=== PATIENT | female | born 1970 | race Caucasian/White ===

== ENCOUNTER 2016-06-11 10:14 | Inpatient (IN) | payer OTHER ==
[~2016-06-11] VITALS: Ht 157.5 cm; Wt 93.7 kg
[~2016-06-11 10:14] MED LIST: ADVIN10/60 INH; AMLO-110 PO; ASCA500 PO; BUPRTAB51 PO; CINN500T OR; FLX10 PO; LOSA100T26 PO; LPT/40 PO; MELO7.5T5 PO; OMEG10007 PO; PANT40TA PO; POTA-335 PO; SERT50TA PO
[2016-06-11] MEDS ORDERED: SODIUM CHLORIDE 0.9% 1000ML 1,000 ML IV STA (10:46)
[2016-06-11] MEDS ORDERED: METOCLOPRAMIDE HCL INJ 5 MG/ML 2 ML VIAL IV STA (10:46)
[2016-06-11] MEDS ORDERED: HYDROmorphone INJ 1 MG/ML SYR IV STA (10:46)
--- NOTE | 2016-06-11 10:48 | EMERGENCY ROOM VISIT NOTE ---
History Report prepared by Jazziberrol: Evelia Hi Under the Supervision of: Dr. Maynor Brown M.D. First contact with patient: 10:35 Chief Complaint: ABDOMINAL PAIN Stated Complaint: LOWER AB PAIN, MUCUS IN STOOLS Nursing Triage Summary: Pain below belly button. Gallbladder out last year. Pain started yesterday. Diarrhea. History of Present Illness The patient is a 46 year old female who presents to the Emergency Room with complaints of persistent LLQ abdominal pain. Her pain started yesterday and she rates her discomfort as a 7/10. She also complains of diarrhea and abdominal bloating. She underwent a cholecystectomy last year and reports she has had colonoscopies in the past, with no abnormal findings. She denies any fevers or vomiting. Source of History: patient Onset: yesterday Position: abdomen (LLQ) Symptom Intensity: 7/10 Timing: other (persistent) Associated Symptoms: + diarrhea, No fevers, No vomiting Review of Systems See HPI for pertinent positives & negatives. A total of 10 systems reviewed and were otherwise negative. Past Medical & Surgical Medical Problems: (1) Diverticulitis (2) Diverticulitis of large intestine with abscess without bleeding Family History Diabetes mellitus Hypertension Social History Smoking Status: Never Smoker Drug Use: none Housing Status: lives with family Occupation Status: employed Current/Historical Medications Scheduled Amlodipine (Norvasc), 5 MG PO DAILY Ascorbic Acid (Vitamin C), 500 MG PO QAM Atorvastatin (Lipitor), 40 MG PO HS Bupropion (Wellbutrin-Xl), 300 MG PO DAILY Cinnamon (Cinnamon), OR DAILY Cyclobenzaprine Hcl (Flexeril *), 10 MG PO PRN Fish Oil ([place]-3), 1 CAP PO DAILY Fluticasone Prop/Salmeterol (Advair Diskus 100/50 Mcg *), 1 PUFF INH DAILY PRN Losartan Potassium & Hydrochlo (Losartan Potassium/Hydroc), 1 TAB PO DAILY Meloxicam (Mobic), 15 MG PO prn Pantoprazole (Protonix), 40 MG PO DAILY Potassium Chloride (Micro-K Ext Rel), 1 TAB PO TID Sertraline (Zoloft), 1 TAB PO HS Allergies Coded Allergies: No Known Allergies (Verified , NONE, 06/11/16) Physical Exam Vital Signs Date Time Temp Pulse Resp B/P Pulse Ox O2 Delivery O2 Flow Rate FiO2 1/1/17 17:22 Room Air 06/11/16 15:17 93 17 139/88 100 Room Air 06/11/16 12:56 89 17 150/90 98 Room Air 06/11/16 10:18 37.2 104 18 152/93 97 Room Air Physical Exam GENERAL: Patient is a healthy-appearing well-nourished HEAD: Normocephalic atraumatic EYES: Ocular movements intact pupils equal and react to light OROPHARYNX mucous membranes are moist no exudates present no erythema or edema present NECK: Supple no nuchal rigidity CHEST: Good equal expansion LUNGS: Clear and equal to auscultation CARDIAC: Normal S1 and S2 ABDOMEN: Soft, tender in LLQ, no guarding BACK: No CVA tenderness EXTREMITIES: No pain upon palpation normal muscle strength in all groups no clubbing cyanosis or edema NEURO: Patient is following commands is answering questions appropriately. Alert and oriented x3 Cranial Nerves 2-12 grossly intact Medical Decision & Procedures ER Provider Diagnostic Interpretation: This CT scan was reviewed and interpreted by the radiologist and reviewed by myself. CT SCAN OF THE ABDOMEN AND PELVIS WITH IV CONTRAST IMPRESSION: 1. There is mild colonic diverticulosis with evidence of acute sigmoid diverticulitis. A developing 1.8 cm diverticular abscess is suspected. No intraperitoneal free air is seen. 2. Suspect a mild reactive oophoritis of the left ovary. 3. Status post left nephrectomy, cholecystectomy, and hysterectomy. 4. Hepatomegaly and mild hepatic steatosis. 5. Additional changes as above. Electronically signed by: Osbaldo Buckner M.D. 06/11/2016 3:41 PM Laboratory Results 06/11/16 11:00 Red Blood Count 4.33, Mean Corpuscular Volume 84.8, Mean Corpuscular Hemoglobin 29.1, Mean Corpuscular Hemoglobin Concent 34.3, Mean Platelet Volume 12.3, Neutrophils (%) (Auto) 83.5, Lymphocytes (%) (Auto) 9.7, Monocytes (%) (Auto) 6.0, Eosinophils (%) (Auto) 0.4, Basophils (%) (Auto) 0.2, Neutrophils # (Auto) 10.07, Lymphocytes # (Auto) 1.17, Monocytes # (Auto) 0.72, Eosinophils # (Auto) 0.05, Basophils # (Auto) 0.02 06/11/16 11:00 Test 06/11/16 11:00 06/11/16 12:10 White Blood Count 12.06 K/uL (4.8-10.8) Red Blood Count 4.33 M/uL (4.2-5.4) Hemoglobin 12.6 g/dL (12.0-16.0) Hematocrit 36.7 % (37-47) Mean Corpuscular Volume 84.8 fL (80-100) Mean Corpuscular Hemoglobin 29.1 pg (25-34) Mean Corpuscular Hemoglobin Concent 34.3 g/dl (32-36) Platelet Count 146 K/uL (130-400) Mean Platelet Volume 12.3 fL (7.4-10.4) Neutrophils (%) (Auto) 83.5 % Lymphocytes (%) (Auto) 9.7 % Monocytes (%) (Auto) 6.0 % Eosinophils (%) (Auto) 0.4 % Basophils (%) (Auto) 0.2 % Neutrophils # (Auto) 10.07 K/uL (1.4-6.5) Lymphocytes # (Auto) 1.17 K/uL (1.2-3.4) Monocytes # (Auto) 0.72 K/uL (0.11-0.59) Eosinophils # (Auto) 0.05 K/uL (0-0.5) Basophils # (Auto) 0.02 K/uL (0-0.2) RDW Standard Deviation 40.5 fL (36.4-46.3) RDW Coefficient of Variation 13.1 % (11.5-14.5) Immature Granulocyte % (Auto) 0.2 % Immature Granulocyte # (Auto) 0.03 K/uL (0.00-0.02) Anion Gap 8.0 mmol/L (3-11) Est Creatinine Clear Calc Drug Dose 78.5 ml/min Estimated GFR () 83.3 Estimated GFR (Non- 71.8 BUN/Creatinine Ratio 8.0 (10-20) Calcium Level 8.1 mg/dl (8.5-10.1) Total Bilirubin 0.4 mg/dl (0.2-1) Direct Bilirubin 0.1 mg/dl (0-0.2) Aspartate Amino Transf (AST/SGOT) 7 U/L (15-37) Alanine Aminotransferase (ALT/SGPT) 17 U/L (12-78) Alkaline Phosphatase 104 U/L (45-117) Total Protein 6.6 gm/dl (6.4-8.2) Albumin 3.2 gm/dl (3.4-5.0) Lipase 120 U/L (73-393) Urine Color YELLOW Urine Appearance CLEAR (CLEAR) Urine pH 6.5 (4.5-7.5) Urine Specific [place] 1.006 (1.000-1.030) Urine Protein NEG (NEG) Urine Glucose (UA) NEG (NEG) Urine Ketones NEG (NEG) Urine Occult Blood NEG (NEG) Urine Nitrite NEG (NEG) Urine Bilirubin NEG (NEG) Urine Urobilinogen NEG (NEG) Urine Leukocyte Esterase NEG (NEG) Labs reviewed by ED physician. Medications Administered Medications (Trade) Dose Ordered Sig/Saul Route Start Time Stop Time Status Last Admin Dose Admin Sodium Chloride (Nss 1000ml) 1,000 ml @ 999 mls/hr Q1H1M STAT IV 06/11/16 10:46 06/11/16 11:46 DC 06/11/16 10:46 999 MLS/HR Hydromorphone HCl (Dilaudid Inj) 1 mg NOW STAT IV 06/11/16 10:46 06/11/16 10:48 DC 06/11/16 11:14 1 MG Metoclopramide HCl (Reglan Inj) 10 mg NOW STAT IV 06/11/16 10:46 06/11/16 10:48 DC 06/11/16 11:14 10 MG Ciprofloxacin/ Dextrose (Cipro / D5w) 400 mg NOW STAT IV 06/11/16 15:50 06/11/16 15:51 DC 06/11/16 15:56 400 MG Metronidazole (Flagyl / Nss) 500 mg NOW STAT IV 06/11/16 15:50 06/11/16 15:51 DC 06/11/16 15:50 500 MG ED Course 1042: Past medical records reviewed. The patient was evaluated in room A9. A complete history and physical examination was performed. 1046: Reglan 10 mg IV, Dilaudid 1 mg IV, NSS 1000 ml @ 999 mls/hr IV. 1548: I discussed the patients case with Dr. Mcintosh, [facility] Surgery. He recommends I consult with the hospital medicine team. 1550: Flagyl 500 mg IV, Cipro 400 mg IV. 1603: I discussed the patients case with Dr. Bernardo [facility] Hospitalist. The patient will be further evaluated. Medical Decision Prior records/ancillary studies reviewed. Triage Nursing notes reviewed. The patient's history was concerning for abdominal pain. Differential diagnosis: Etiologies such as appendicitis, diverticulitis, PUD, biliary pathology, UTI, pancreatitis, obstruction, mesenteric ischemia, aortic pathology, infections, inflammatory bowel disease, renal colic, as well as others were entertained. This is a 46-year-old female who presents emergency department complaining of left lower quadrant abdominal pain along with mucousy stools. Based on the patient's examination as well as the elevation in her white blood count she was sent for a CAT scan of the abdomen pelvis. This was concerning for diverticulitis with an abscess. For this reason I did discuss the case with the surgeon on-call who felt that the patient could be admitted to the medicine service. The patient was started on Cipro and Flagyl IV. I did discuss case with the medicine service who agreed to admit the patient. An IV was established, the patient given normal saline bolus, Dilaudid, Zofran. Repeat examination revealed improvement patient's symptoms. Surgical abdominal examinations were performed on the patient in the emergency department and at no time did the patient exhibit a surgical abdomen. Consults Time Called: 1547 Consulting Physician: Dr. Mcintosh, [facility] General Surgery Returned Call: 1548 I discussed the patients case with Dr. Mcintosh, [facility] Surgery. He recommends I consult with the hospital medicine team. Additional Consults: Time Called: 1600 Consulted Physician: Dr. Bernardo [facility] Hospitalist Returned Call: 1603 Additional Comments: I discussed the patients case with Dr. Bernardo [facility] Hospitalist. The patient will be further evaluated. Impression Primary Impression: Diverticulitis Scribe Attestation The scribe's documentation has been prepared under my direction and personally reviewed by me in its entirety. I confirm that the note above accurately reflects all work, treatment, procedures, and medical decision making performed by me. Departure Information Dispostion Being Evaluated By Hospitalist Referrals Osbaldo Jones M.D. (PCP) Patient Instructions A Signature Page, My [facility]
[2016-06-11 11:36] LABS: BASO % 0.2 %; BASO ABS # 0.02 K/uL (0-0.2); COMPLETE YES; EOS % 0.4 %; HEMATOCRIT 36.7 % (37-47); IG% 0.2 %; LYMPH % 9.7 %; LYMPH ABS # 1.17 K/uL (1.2-3.4); MEAN CELL VOLUME 84.8 fL (80-100); MEAN CORPUSCULAR HEMOGLOBIN 29.1 pg (25-34); MEAN CORPUSCULAR HGB CONC 34.3 g/dl (32-36); MEAN PLATELET VOLUME 12.3 fL (7.4-10.4); NEUT % 83.5 %; PLATELET COUNT 146 K/uL (130-400); RED BLOOD COUNT 4.33 M/uL (4.2-5.4); WHITE BLOOD COUNT 12.06 K/uL (4.8-10.8)
[2016-06-11 11:46] LABS: CREATININE 0.95 mg/dl (0.60-1.20)
[2016-06-11 11:47] LABS: CALCIUM 8.1 mg/dl (8.5-10.1); POTASSIUM 3.5 mmol/L (3.5-5.1)
[2016-06-11 12:32] LABS: URINE APPEARANCE CLEAR (CLEAR); URINE BILIRUBIN NEG (NEG); URINE COLOR YELLOW; URINE NITRITE NEG (NEG); URINE PH 6.5 (4.5-7.5); URINE SPECIFIC GRAVITY 1.006 (1.000-1.030); UROBILINOGEN NEG (NEG)
[2016-06-11 12:34] LABS: MANUAL MICROSCOPIC REQUIRED? NO; REVIEW REQ? NO
--- NOTE | 2016-06-11 15:43 | DIAGNOSTIC IMAGING REPORT ---
CT SCAN OF THE ABDOMEN AND PELVIS WITH IV CONTRAST CLINICAL HISTORY: Left lower quadrant abdominal pain. COMPARISON STUDY: Abdominal ultrasound dated 12/26/2014. TECHNIQUE: Following the IV administration of 118 cc of Optiray 320, CT scan of the abdomen and pelvis is performed from the lung bases to the proximal femora. Images are reviewed in the axial, sagittal, and coronal planes. IV contrast was administered without complication. Automated dose control exposure was utilized. CT DOSE: 886.62 mGy.cm FINDINGS: Lung bases: The heart is normal in size and without pericardial effusion. The lung bases are clear. Liver: The contrast-enhanced the liver is enlarged, measuring 20 cm in length. The liver demonstrates slightly diminished attenuation suggesting hepatic steatosis. The liver is normal in contour. There is no intrahepatic biliary ductal dilatation. The hepatic veins and portal veins are patent. Gallbladder: Surgically absent noting clips in the gallbladder fossa. Spleen: Normal in size and attenuation. Pancreas: Unremarkable. Adrenal glands: Unremarkable. Kidneys: The left kidney is not identified and presumed surgically absent. The right kidney is normal in size and without hydronephrosis. The right kidney enhances homogeneously. A subcentimeter cortical hypodensity in the right kidney likely represents a cyst but is too small for definitive characterization. Abdominal vasculature: The abdominal aorta is normal in course and caliber. Bowel: There is no bowel obstruction. There is mild sigmoid diverticulosis. There is significant wall thickening with pericolonic inflammation and fluid identified involving the proximal sigmoid colon consistent with acute diverticulitis. There is a small development diverticular abscess suggested on axial image #315 measuring up to 1.8 cm. The appendix is well-visualized and normal. Peritoneum: There is no intraperitoneal free air or abdominal ascites. There is a fat-containing umbilical hernia. Lymphadenopathy: None. Pelvic viscera: The bladder is decompressed and not well evaluated. The uterus is surgically absent. No adnexal lesion is seen. Left ovary appears mildly enlarged and heterogeneous. This likely represents a reactive oophoritis secondary to adjacent diverticular disease. Skeletal structures: No lytic or blastic lesions are seen. Advanced degenerative sclerosis is noted involving the sacroiliac joints. IMPRESSION: 1. There is mild colonic diverticulosis with evidence of acute sigmoid diverticulitis. A developing 1.8 cm diverticular abscess is suspected. No intraperitoneal free air is seen. 2. Suspect a mild reactive oophoritis of the left ovary. 3. Status post left nephrectomy, cholecystectomy, and hysterectomy. 4. Hepatomegaly and mild hepatic steatosis. 5. Additional changes as above. Electronically signed by: Osbaldo Buckner M.D. 06/11/2016 3:41 PM
[2016-06-11] MEDS ORDERED: METRONIDAZOLE 500MG / 100ML NSS IV STA (15:50)
[2016-06-11] MEDS ORDERED: CIPROFLOXACIN 400MG / 200ML D5W IV STA (15:50)
[2016-06-11] MEDS ORDERED: ACETAMINOPHEN 325 MG TAB PO PRN (17:00)
[2016-06-11] MEDS ORDERED: ONDANSETRON INJ 2 MG/ML 2 ML VIAL IV PRN (17:00)
[2016-06-11] MEDS ORDERED: HYDROmorphone INJ 1 MG/ML SYR IV PRN ×2 (17:00)
[2016-06-11 17:22] VITALS: Ht 157.5 cm; Wt 93.7 kg
[2016-06-11 17:42] VITALS: O2SAT 98
[2016-06-11 17:57] VITALS: BP 151/88; PULSE 78; TEMP 36.8; O2SAT 98
[2016-06-11 18:19] LABS: INR 0.9 (0.9-1.1)
[2016-06-11] MEDS: D5W AND 1/2NSS + 20MEQ KCL 1,000 ML IV SCH (20:47)
[2016-06-11] MEDS ORDERED: ATORVASTATIN 40 MG TAB PO SCH (21:00)
[2016-06-11] MEDS ORDERED: SERTRALINE HCL 50 MG TAB PO SCH (21:00)
[2016-06-11] MEDS ORDERED: ENOXAPARIN 40 MG/0.4 ML SYR SQ SCH (21:00)
--- NOTE | 2016-06-11 21:56 | History and Physical ---
History & Physical H&P dictated. #[id number].
[2016-06-11 22:57] VITALS: BP 117/76; PULSE 81; TEMP 36.7; O2SAT 94
--- NOTE | 2016-06-11 23:08 | HISTORY & PHYSICAL EXAMINATION ---
DATE OF ADMISSION: 06/11/2016 CHIEF COMPLAINT: Lower abdominal pain. HISTORY OF PRESENT ILLNESS: A 46-year-old female patient, who presented to the Emergency Department with left lower quadrant abdominal pain that started 24 hours prior. She rates the discomfort as 7/10 and it is a persistent, nagging type of pain. She did feel that she has had abdominal bloating and some diarrhea. She has not had any fevers or chills. No vomiting, but she has been somewhat nauseated. PAST MEDICAL HISTORY: Consistent with hypertension, hyperlipidemia, GERD, depression and asthma. PAST SURGICAL HISTORY: Partial hysterectomy, , tubal ligation, ankle and neck surgery. She was a donor for kidney transplant to her son. FAMILY HISTORY: Positive for hypertension and diabetes. SOCIAL HISTORY: The patient is . She is employed. Does not smoke or take illicit substances. ALLERGIES: She has no known drug allergies. CURRENT HOME MEDICATIONS: Include; Norvasc 5 mg daily, vitamin C 500 mg in the morning, Lipitor 40 mg at bedtime, Wellbutrin-XL 300 mg daily, cinnamon daily, Flexeril 10 mg p.r.n., omega 3 one capsule daily, Advair Diskus 100/50 one puff b.i.d. and p.r.n. she says, losartan/hydrochlorothiazide 1 tablet daily; no dose was given, Mobic 15 mg p.r.n., Protonix 40 mg daily, Zoloft 1 tablet at bedtime, potassium 1 tablet t.i.d.; no dose was given. REVIEW OF SYSTEMS: A complete 10-system review was performed and was negative other than what I placed in the HPI. PHYSICAL EXAMINATION: VITAL SIGNS: Temperature 36.8, pulse of 89, respiratory rate of 17, blood pressure 150/90 and pulse ox 98% on room air. GENERAL: The patient is awake, alert and oriented x3, not in acute distress. HEENT: TMs intact. No inflammation. Extraocular muscles are intact. Pupils are equal, round, reactive to light and accommodation. Mucous membranes are moist. Throat is clear. NECK: No JVD or lymphadenopathy. LUNGS: Clear to auscultation bilaterally. No rales, rhonchi or wheezes. HEART: Regular, normal S1, S2, without murmurs, rubs or gallops. ABDOMEN: Soft. Left lower quadrant tenderness, no guarding, no rebound. Positive bowel sounds. EXTREMITIES: No clubbing, cyanosis or edema. NEUROLOGIC: Cranial nerves II-XII are grossly intact and nonfocal. SKIN: Warm and dry without rash. PSYCHIATRIC: The patient is pleasant and cooperative. No signs of significant anxiety or depression. IMAGING: CT scan of the abdomen and pelvis, the impression is: 1. There is mild colonic diverticulosis with evidence of acute sigmoid diverticulitis, a developing 1.8 cm diverticular abscess is suspected. No intraperitoneal free air is seen. 2. Suspect mild reactive oophoritis of the left ovary. 3. Status post left nephrectomy, cholecystectomy and hysterectomy. 4. Hepatomegaly and mild hepatic steatosis. 5. Additional changes as noted above. LABORATORY DATA: White count 12.06, hemoglobin 12.6, hematocrit 36.7 and platelet count of 146,000. Sodium 141, potassium 3.5, chloride 107, CO2 26, BUN 8 and creatinine 0.95. AST of 7, ALT of 17 and lipase of 120. INR of 0.9. Urinalysis was essentially negative. ASSESSMENT: The patient is assessed as acute diverticulitis with small sigmoid diverticular abscess at 1.8 cm. PLAN: She was admitted for IV Cipro and IV Flagyl, given IV fluids, full liquid diet and appropriate home medications are continued. Pain and nausea control. DVT prophylaxis in the form of Lovenox, IVY hose and SCDs. NOTE: The patient informed me that her son has to go to [place] for a kidney transplant and the family had planned to leave Sunday evening which would be at the time of this dictation, tomorrow night. I told the patient that it would be expected that she would continue on IV antibiotics perhaps another day or two. However, it would be beneficial for her to be able to be with her son doing this significant procedure that she asked if she could be switched; to oral antibiotics by the afternoon tomorrow and allowing her to go with her son. I told her that we will do what we can in that situation.
[2016-06-12] MEDS: METRONIDAZOLE / NSS 500 MG in PREMIXED NSS 100 ML IV SCH ×2 (00:21→07:24)
[2016-06-12] MEDS: D5W AND 1/2NSS + 20MEQ KCL 1,000 ML IV SCH ×2 (03:43→11:49)
[2016-06-12] MEDS ORDERED: CIPROFLOXACIN / D5W 400 MG in PREMIXED IN D5W 200 ML IV SCH (04:00)
[2016-06-12 07:02] VITALS: BP 125/78; PULSE 87; TEMP 36.4; O2SAT 96
[2016-06-12 08:37] LABS: BASO % 0.3 %; BASO ABS # 0.02 K/uL (0-0.2); COMPLETE YES; EOS % 1.5 %; HEMATOCRIT 36.6 % (37-47); IG% 0.3 %; LYMPH ABS # 1.54 K/uL (1.2-3.4); MEAN CELL VOLUME 85.3 fL (80-100); MEAN CORPUSCULAR HEMOGLOBIN 28.4 pg (25-34); MEAN CORPUSCULAR HGB CONC 33.3 g/dl (32-36); MEAN PLATELET VOLUME 12.3 fL (7.4-10.4); MONO % 5.5 %; NEUT % 71.4 %; PLATELET COUNT 158 K/uL (130-400); RED BLOOD COUNT 4.29 M/uL (4.2-5.4); WHITE BLOOD COUNT 7.33 K/uL (4.8-10.8)
[2016-06-12 08:45] VITALS: BP 130/83; PULSE 87
[2016-06-12] MEDS ORDERED: CPR500 PO (08:46)
[2016-06-12] MEDS ORDERED: METR500T PO (08:46)
--- NOTE | 2016-06-12 08:51 | Discharge Instructions ---
Discharge Instructions Admission Reason for Admission: Diverticulitis Of Large Intestine W/ Abscess Discharge Discharge Diagnosis / Problem: Diverticulitis of Large intestine with abscess Discharge Goals Goal(s): Decrease discomfort, Improve disease control Activity Recommendations Activity Limitations: resume your previous activity . Instructions / Follow-Up Instructions / Follow-Up Complete antibiotic course. Call PCP or return to the ED for fever, worsening abdominal pain, or persistent diarrhea. Current Hospital Diet Full liquid diet. Discharge Diet Recommended Diet: Regular Diet Pending Studies Studies pending at discharge: no Laboratory Results Last 24 Hours Test 06/11/16 11:00 06/11/16 12:10 06/12/16 08:25 White Blood Count 12.06 K/uL 7.33 K/uL Red Blood Count 4.33 M/uL 4.29 M/uL Hemoglobin 12.6 g/dL 12.2 g/dL Hematocrit 36.7 % 36.6 % Mean Corpuscular Volume 84.8 fL 85.3 fL Mean Corpuscular Hemoglobin 29.1 pg 28.4 pg Mean Corpuscular Hemoglobin Concent 34.3 g/dl 33.3 g/dl Platelet Count 146 K/uL 158 K/uL Mean Platelet Volume 12.3 fL 12.3 fL Neutrophils (%) (Auto) 83.5 % 71.4 % Lymphocytes (%) (Auto) 9.7 % 21.0 % Monocytes (%) (Auto) 6.0 % 5.5 % Eosinophils (%) (Auto) 0.4 % 1.5 % Basophils (%) (Auto) 0.2 % 0.3 % Neutrophils # (Auto) 10.07 K/uL 5.24 K/uL Lymphocytes # (Auto) 1.17 K/uL 1.54 K/uL Monocytes # (Auto) 0.72 K/uL 0.40 K/uL Eosinophils # (Auto) 0.05 K/uL 0.11 K/uL Basophils # (Auto) 0.02 K/uL 0.02 K/uL RDW Standard Deviation 40.5 fL 41.0 fL RDW Coefficient of Variation 13.1 % 13.2 % Immature Granulocyte % (Auto) 0.2 % 0.3 % Immature Granulocyte # (Auto) 0.03 K/uL 0.02 K/uL Prothrombin Time 10.0 SECONDS Prothromb Time International Ratio 0.9 Sodium Level 141 mmol/L Potassium Level 3.5 mmol/L Chloride Level 107 mmol/L Carbon Dioxide Level 26 mmol/L Anion Gap 8.0 mmol/L Blood Urea Nitrogen 8 mg/dl Creatinine 0.95 mg/dl Est Creatinine Clear Calc Drug Dose 78.5 ml/min Estimated GFR () 83.3 Estimated GFR (Non- 71.8 BUN/Creatinine Ratio 8.0 Random Glucose 95 mg/dl Calcium Level 8.1 mg/dl Total Bilirubin 0.4 mg/dl Direct Bilirubin 0.1 mg/dl Aspartate Amino Transf (AST/SGOT) 7 U/L Alanine Aminotransferase (ALT/SGPT) 17 U/L Alkaline Phosphatase 104 U/L Total Protein 6.6 gm/dl Albumin 3.2 gm/dl Lipase 120 U/L Urine Color YELLOW Urine Appearance CLEAR Urine pH 6.5 Urine Specific [place] 1.006 Urine Protein NEG Urine Glucose (UA) NEG Urine Ketones NEG Urine Occult Blood NEG Urine Nitrite NEG Urine Bilirubin NEG Urine Urobilinogen NEG Urine Leukocyte Esterase NEG Medical Emergencies . Who to Call and When: Medical Emergencies: If at any time you feel your situation is an emergency, please call 911 immediately. . Non-Emergent Contact Non-Emergency issues call your: Primary Care Provider Call Non-Emergent contact if: you have a fever, your pain is worsening . . "Provider Documentation" section prepared by Merrill Bernardo. VTE Core Measure Inpt VTE Proph given/why not?: Enoxaparin (Lovenox)SQ, T.E.D. Stockings, SCD's
[2016-06-12] MEDS ORDERED: BuPROPion XL 300 MG TABCR PO SCH (09:00)
[2016-06-12] MEDS ORDERED: PANTOprazole SOD 40 MG TAB PO SCH (09:00)
[2016-06-12] MEDS ORDERED: AMLODIPINE BESYLATE 5 MG TAB PO SCH (09:00)
--- NOTE | 2016-06-12 09:03 | Discharge Summary ---
Discharge Summary Admission Date: Jun 11, 2016 at 16:23 Discharge Date: Jun 12, 2016 Discharge Disposition: Home Principal Diagnosis: Diverticulitis of large intestine with abscess. Problems/Secondary Diagnoses: Diverticulosis Immunizations: Have You Had Influenza Vaccine: Yes History of Tetanus Vaccine?: Yes History of Pneumococcal: No History of Hepatitis B Vaccine: Yes Procedures: none Consultations: none Medication Reconciliation New Medications: Ciprofloxacin (Ciprofloxacin HCl) 500 Mg Tab 500 MG PO BID for 10 Days, #20 0 Refills NS Metronidazole (Flagyl) 500 Mg Tab 500 MG PO TID for 10 Days, #30 TAB NS Continued Medications: Amlodipine (Norvasc) 5 Mg Tab 5 MG PO DAILY, TAB Ascorbic Acid (Vitamin C) 500 Mg Tab 500 MG PO QAM Atorvastatin (Lipitor) 40 Mg Tab 40 MG PO HS, TAB Bupropion (Wellbutrin-Xl) 300 Mg Tabcr 300 MG PO DAILY, TAB Cinnamon (Cinnamon) 500 Mg Tab OR DAILY Cyclobenzaprine Hcl (Flexeril *) 10 Mg Tab 10 MG PO PRN, #21 Fish Oil ([place]-3) 1 Ea Cap 1 CAP PO DAILY Fluticasone Prop/Salmeterol (Advair Diskus 100/50 Mcg *) Aerp 1 PUFF INH DAILY PRN Losartan Potassium & Hydrochlo (Losartan Potassium/Hydroc) 1 Tab Tab 1 TAB PO DAILY for 90 Days, #90 TAB 1 Refill Meloxicam (Mobic) 7.5 Mg Tab 15 MG PO prn, TAB Pantoprazole (Protonix) 40 Mg Tab 40 MG PO DAILY, #30 TAB Potassium Chloride (Micro-K Ext Rel) 20 Meq Cap 1 TAB PO TID for 90 Days, #90 TAB 1 Refill Sertraline (Zoloft) 50 Mg Tab 1 TAB PO HS for 30 Days, #30 TAB 2 Refills Discharge Exam A 10 system review was performed and all were negative. She had no abdominal pain on the morning of discharge. GEN: Awake, alert, and oriented x 3. Not in acute distress HEENT: Tm's intact, no inflammation, EOMI, PERRLA, MMM Neck: Soft, supple Lungs: CTA b/l, no r/r/w Heart: REG, nrl S1S2 without murmurs, rubs or gallops Abdomen: Soft, NT, ND, + BS EXT: No C/C/E NEURO: CN's II-XII grossly intact, non-focal Skin: warm, dry, no rashes PSYCH: pleasant, cooperative, no signs of significant anxiety or depression. Hospital Course The patient presented with LLQ abdominal pain and was found to have Diverticulitis with small (1.8cm) abscess formation. She was started on IV Cipro and IV Flagyl. The ED physician had spoke with surgery and felt that the size of the abscess warranted medical therapy i.e. no need for surgical intervention. The patient informed me on admission that on 06/13 her son was having a kidney transplant in [place], [place] which she strongly desired to be with him. They had made arrangements to be at hotel near the site on this day at around 1600. Noting that she had no abdominal pain or nausea and that her white count had returned to normal, I obliged the patient with discharge on oral antibiotics. I spoke with her specifically advising that if she develops fever or has return of abdominal pain to call her PCP or return to the ED. Otherwise she is to follow up with her PCP when she and her family return from [place]. She was appreciative of the timely discharge to attend to family needs. Total Time Spent: Greater than 30 minutes This includes examination of the patient, discharge planning, medication reconciliation, and communication with other providers. Discharge Instructions Please refer to the electronic Patient Visit Report (Discharge Instructions) for additional information. Follow-Up PCP - call office when return from [place], [place].
[2016-06-12 09:04] LABS: BUN/CREATININE RATIO 4.8 (10-20); CALCIUM 8.2 mg/dl (8.5-10.1); CREATININE 0.93 mg/dl (0.60-1.20); POTASSIUM 3.5 mmol/L (3.5-5.1)
[2016-06-12 09:42] VITALS: BP 130/83; PULSE 87; TEMP 36.4; O2SAT 96
== END 2016-06-12 12:37 | disposition home or self-care (01) | DRG 392 ==
LOC: ENRESERV → ENRESERVDT → ENRESERVTM → C.EDB 10:15 → C.MSN 16:23
PROVIDERS: ADMIT Hospitalist; ATTEND Hospitalist
DX: K57.20 Diverticulitis of large intestine with perforation and abscess without bleeding (principal); I10 Essential (primary) hypertension; E78.5 Hyperlipidemia, unspecified; K21.9 Gastro-esophageal reflux disease without esophagitis; J45.909 Unspecified asthma, uncomplicated; F32.9 Major depressive disorder, single episode, unspecified; Z79.1 Long term (current) use of non-steroidal anti-inflammatories (NSAID); Z79.51 Long term (current) use of inhaled steroids; Z79.899 Other long term (current) drug therapy

== ENCOUNTER → 2016-09-11 | Outpatient (CLI) | payer OTHER ==
[~2016-09-11] MED LIST changes: +CPR500 PO; -LOSA100T26 PO; +LOSA100T33 PO
[2016-09-11 13:43] LABS: BLOOD UREA NITROGEN 8 mg/dl (7-18); BUN/CREATININE RATIO 8.5 (10-20); CREATININE 0.93 mg/dl (0.60-1.20)
== END | disposition home or self-care (01) ==
LOC: C.LABMFLN 07:56
PROVIDERS: ATTEND Family Medicine
DX: R10.9 Unspecified abdominal pain (principal)

== ENCOUNTER → 2016-09-12 | Outpatient (CLI) | payer OTHER ==
[~2016-09-12] MED LIST changes: +OPTIRAY 320 IV PRN
--- NOTE | 2016-09-12 16:05 | DIAGNOSTIC IMAGING REPORT ---
ABDOMEN AND PELVIS CT WITH IV AND ORAL CONTRAST CT DOSE: 799.79 mGy.cm HISTORY: Diverticulosis. Pain TECHNIQUE: Multiaxial CT images of the abdomen and pelvis were performed following the use of intravenous and oral contrast. COMPARISON STUDY: 06/11/2016 FINDINGS: Lung bases are clear. Liver spleen and pancreas are unremarkable. Patient is status post prior cholecystectomy, [fracture mid, as well as hysterectomy. The bowel pattern overall is nonobstructive. Appendix is normal. There are several scattered diverticuli. The diverticulitis of the proximal sigmoid colon. Described is no longer present. There is 2 cm left ovarian cyst with several peripheral calcifications. Bladder is midline. There is no free fluid within pelvic cul-de-sac. IMPRESSION: 1. Improved study from the prior exam. 2. No evidence for acute diverticulitis. 3. Slightly complex 2 cm left ovarian cyst. 4. Prior left affectively, cholecystectomy, and partial hysterectomy. Electronically signed by: Boris Lainez M.D. 09/12/2016 4:03 PM Dictated Date/Time: 09/12/2016 4:00 PM
== END | disposition home or self-care (01) ==
LOC: C.CTS 15:37
PROVIDERS: ATTEND Family Medicine
DX: R10.32 Left lower quadrant pain (principal); K57.32 Diverticulitis of large intestine without perforation or abscess without bleeding; N83.202 Unspecified ovarian cyst, left side; Z90.710 Acquired absence of both cervix and uterus; Z90.49 Acquired absence of other specified parts of digestive tract

== ENCOUNTER → 2016-09-28 | Outpatient (CLI) | payer OTHER ==
[~2016-09-28] MED LIST changes: -OPTIRAY 320 IV PRN
== END | disposition home or self-care (01) ==
LOC: C.LABMFLN 08:15
PROVIDERS: ATTEND Family Medicine
DX: J02.9 Acute pharyngitis, unspecified (principal)

== ENCOUNTER → 2017-01-29 | Outpatient (CLI) | payer OTHER ==
[~2017-01-29] MED LIST changes: +LOSA100T26 PO; -LOSA100T33 PO
--- NOTE | 2017-01-29 15:18 | DIAGNOSTIC IMAGING REPORT ---
ABD/PELVIS IV AND ORAL CONT CLINICAL HISTORY: 46 years-old Female presenting with DIVERTICULITIS. TECHNIQUE: Multidetector CT of the abdomen and pelvis was performed after the administration of oral and intravenous contrast. IV contrast: 93 mL of Optiray 320. A dose lowering technique was used consistent with the principles of ALARA (as low as reasonably achievable). COMPARISON: 09/12/2016. CT DOSE (mGy.cm): The estimated cumulative dose is 1025.62 mGycm. FINDINGS: Magician/Illusionist topogram: Cholecystectomy clips noted. Additional surgical clips in the left periaortic region. Lung bases: Minimal dependent opacities at the right lung base, possibly atelectasis. Normal heart size. No pericardial or pleural effusion. Liver: Normal morphology. No liver lesion. Patent hepatic vasculature. Biliary: No intrahepatic or extrahepatic biliary ductal dilatation. Gallbladder surgically absent. Pancreas: Normal. Spleen: Normal. Adrenal glands: Normal. Kidneys and ureters: Postsurgical changes of left nephrectomy. No abnormal soft tissue in the operative bed. No nephrolithiasis in the right kidney. Subcentimeter hypodensity in the interpolar region, too small to characterize but likely cyst. Nodular process. Right ureter normal. Bladder: Normal. Pelvic organs: Uterus surgically absent. Ovaries normal with dominant follicle on the left. Bowel: No significant diverticulosis. No diverticulitis. Moderate stool burden in the rectum. Normal appendix. No bowel obstruction. Peritoneal cavity: No free fluid or intraperitoneal gas. Vasculature: Aorta and IVC patent and normal in caliber. Lymph nodes: No enlarged lymph nodes in the abdomen or pelvis. Abdominal wall: Small fat-containing of umbilical hernia. Diastases of the abdominis rectus. Musculoskeletal: Normal. IMPRESSION: 1. No evidence of diverticulosis or diverticulitis. No acute intra-abdominal pathology. 2. Postsurgical changes of left nephrectomy. No suspicious soft tissue in the operative bed. Electronically signed by: Ousmane Interiano M.D. 01/29/2017 3:16 PM Dictated Date/Time: 01/29/2017 3:10 PM
== END | disposition home or self-care (01) ==
LOC: C.CTS 12:45
PROVIDERS: ATTEND Family Medicine
DX: K57.32 Diverticulitis of large intestine without perforation or abscess without bleeding (principal)

== ENCOUNTER → 2017-01-30 | Outpatient (CLI) | payer OTHER ==
[2017-01-30 13:43] LABS: URINE APPEARANCE CLEAR (CLEAR); URINE BILIRUBIN NEG (NEG); URINE COLOR YELLOW; URINE NITRITE NEG (NEG); URINE PH 5.5 (4.5-7.5); URINE SPECIFIC GRAVITY 1.016 (1.000-1.030); UROBILINOGEN NEG (NEG)
[2017-01-30 13:49] LABS: MANUAL MICROSCOPIC REQUIRED? NO; REVIEW REQ? NO
[2017-02-02 18:22] LABS: CRYPTOSPORIDIUM AG TC 37213 NOT DETECTED (NOT DETECTED); O&P GIARDIA AG NOT DETECTED (NOT DETECTED)
== END | disposition home or self-care (01) ==
LOC: C.LABMFLN 10:20
PROVIDERS: ATTEND Family Medicine
DX: R10.32 Left lower quadrant pain (principal); R19.7 Diarrhea, unspecified

== ENCOUNTER → 2017-02-01 | Outpatient (CLI) | payer OTHER ==
[2017-02-01 13:35] LABS: BASO % 0.6 %; BASO ABS # 0.04 K/uL (0-0.2); COMPLETE YES; EOS % 2.3 %; HEMATOCRIT 37.4 % (37-47); IG% 0.3 %; LYMPH % 19.1 %; LYMPH ABS # 1.26 K/uL (1.2-3.4); MEAN CELL VOLUME 84.4 fL (80-100); MEAN CORPUSCULAR HEMOGLOBIN 28.9 pg (25-34); MEAN CORPUSCULAR HGB CONC 34.2 g/dl (32-36); MEAN PLATELET VOLUME 12.7 fL (7.4-10.4); MONO % 6.2 %; NEUT % 71.5 %; PLATELET COUNT 166 K/uL (130-400); RED BLOOD COUNT 4.43 M/uL (4.2-5.4); WHITE BLOOD COUNT 6.59 K/uL (4.8-10.8)
[2017-02-01 14:24] LABS: ALKALINE PHOSPHATASE 99 U/L (45-117); ALT/SGPT 22 U/L (12-78); AMYLASE 59 U/L (25-115); AST/SGOT 19 U/L (15-37)
[2017-02-01 16:19] LABS: CHOLESTEROL/HDL RATIO 3.5
== END | disposition home or self-care (01) ==
LOC: C.LABMFLN 07:58
PROVIDERS: ATTEND Family Medicine
DX: R10.32 Left lower quadrant pain (principal)

== ENCOUNTER → 2017-02-05 | Outpatient (CLI) | payer OTHER ==
[2017-02-05 13:37] LABS: BLOOD UREA NITROGEN 9 mg/dl (7-18); BUN/CREATININE RATIO 9.6 (10-20); CALCIUM 8.5 mg/dl (8.5-10.1); CARBON DIOXIDE 25 mmol/L (21-32); CHLORIDE 107 mmol/L (98-107); CREATININE 0.96 mg/dl (0.60-1.20); GLUCOSE 100 mg/dl (70-99); SODIUM 139 mmol/L (136-145)
== END | disposition home or self-care (01) ==
LOC: C.LABMFLN 11:50
PROVIDERS: ATTEND Family Medicine
DX: E55.9 Vitamin D deficiency, unspecified (principal); E78.5 Hyperlipidemia, unspecified; I10 Essential (primary) hypertension

== ENCOUNTER → 2017-03-12 | Outpatient (CLI) | payer OTHER ==
--- NOTE | 2017-03-12 15:44 | MAMMOGRAPHY REPORT ---
BILATERAL DIGITAL SCREENING MAMMOGRAM TOMOSYNTHESIS WITH CAD: 03/12/2017 CLINICAL HISTORY: Routine screening. Patient has no complaints. TECHNIQUE: Breast tomosynthesis in addition to standard 2D mammography was performed. Current study was also evaluated with a Computer Aided Detection (CAD) system. COMPARISON: Comparison is made to exams dated: 08/04/2015 mammogram, 01/18/2015 mammogram, 07/09/2014 m ammogram, 06/17/2014 mammogram, 06/16/2014 mammogram, and 02/06/2013 mammogram - [facility]. BREAST COMPOSITION: There are scattered areas of fibroglandular density in both breasts. FINDINGS: There are stable asymmetries bilaterally, and a stable everton-shaped metallic biopsy marker in the 6:00 right breast. No new suspicious mass, architectural distortion or cluster of microcalcific ations is seen. IMPRESSION: ACR BI-RADS CATEGORY 1: NEGATIVE There is no mammographic evidence of malignancy. A 1 year screening mammogram is recommended. The pa tient will receive written notification of the results. Approximately 10% of breast cancers are not detected with mammography. A negative mammographic report should not delay biopsy if a clinically suggestive mass is present. Claudia Perea M.D. ay/:03/12/2017 15:34:17 Photo Manager: Marichuy NORTON)(Isabel)(BD), [facility] letter sent: Normal 1/2 BI-RADS Code: ACR BI-RADS Category 1: Negative
== END | disposition home or self-care (01) ==
LOC: C.MAMM 07:12
PROVIDERS: ATTEND Family Medicine
DX: Z12.31 Encounter for screening mammogram for malignant neoplasm of breast (principal)

== ENCOUNTER → 2017-05-01 | Outpatient (CLI) | payer OTHER ==
[~2017-05-01] MED LIST changes: -LOSA100T26 PO; +LOSA100T33 PO
[2017-05-01 12:39] LABS: MANUAL MICROSCOPIC REQUIRED? YES; URINE APPEARANCE CLEAR (CLEAR); URINE BILIRUBIN NEG (NEG); URINE COLOR YELLOW; URINE NITRITE NEG (NEG); URINE PH 5.5 (4.5-7.5); URINE SPECIFIC GRAVITY 1.015 (1.000-1.030); UROBILINOGEN NEG (NEG)
[2017-05-01 12:42] LABS: REVIEW REQ? NO
[2017-05-01 12:49] LABS: URINE BACTERIA NEG (NEG)
== END | disposition home or self-care (01) ==
LOC: C.LABMFLN 10:41
PROVIDERS: ATTEND Family Medicine
DX: R19.7 Diarrhea, unspecified (principal); R30.0 Dysuria

== ENCOUNTER 2017-06-14 17:40 | Emergency (ER) | payer OTHER ==
[~2017-06-14] VITALS: Ht 157.5 cm; Wt 92.5 kg
[~2017-06-14 17:40] MED LIST changes: -CINN500T OR; +CINN500T PO
[2017-06-14 17:55] VITALS: Ht 157.5 cm; Wt 92.5 kg
[2017-06-14] MEDS ORDERED: ONDANSETRON INJ 2 MG/ML 2 ML VIAL IV STA (19:39)
[2017-06-14] MEDS ORDERED: HYDROmorphone INJ 1 MG/ML SYR IV STA (19:39)
--- NOTE | 2017-06-14 19:42 | EMERGENCY ROOM VISIT NOTE ---
History Report prepared by Peyton: Sajan Stafford Under the Supervision of: Dr. Maynor Brown M.D. First contact with patient: 19:25 Chief Complaint: ABDOMINAL PAIN Stated Complaint: STOMACH CRAMPING Nursing Triage Summary: Patient c/o abdmoinal pain . History of Cdiff in january, retested in and again positve andnow on oral vancomycin every other day. States she also has history of diverticulitis last year History of Present Illness The patient is a 47 year old female who presents to the Emergency Room with complaints of worsening abdominal pain that began recently. She has associated symptoms of severe stomach cramping. She states that the stomach problems have been waxing and waning for a while. Patient denies having diarrhea. Pertinent medical history includes Clostridium Difficile. She states she was treated in January and rested in April. Patient's PCP is Dr. Jones. Pertinent past surgical history includes a and cholecystectomy. Source of History: patient Onset: Recent Position: abdomen Timing: worsening Associated Symptoms: No diarrhea Note: Patient has abdominal cramping. Review of Systems See HPI for pertinent positives & negatives. A total of 10 systems reviewed and were otherwise negative. Past Medical & Surgical Medical Problems: (1) Diverticulitis (2) Diverticulitis of large intestine with abscess without bleeding Family History Diabetes mellitus Hypertension Social History Smoking Status: Never Smoker Drug Use: none Housing Status: lives with family Occupation Status: employed Current/Historical Medications Scheduled Amlodipine Besylate (Norvasc), 5 MG PO DAILY Ascorbic Acid (Vitamin C), 500 MG PO QAM Atorvastatin (Lipitor), 40 MG PO HS Bupropion (Wellbutrin-Xl), 300 MG PO QAM Cinnamon (Cinnamon), 500 MG PO DAILY Docusate Sodium (Colace), 1 CAP PO BID Fish Oil ([place]-3), 1 CAP PO DAILY Hctz/Losartan (Hyzaar 12.5MG/50MG), 1 TAB PO DAILY Pantoprazole (Protonix), 40 MG PO DAILY Potassium Chloride Microencaps (Potassium Chloride Er), 20 MEQ PO TID Sennosides (Senokot), 8.6 MG PO HS Sertraline Hcl (Zoloft), 100 MG PO HS Vancomycin Hcl (Vancomycin), 125 MG PO Q2D Scheduled PRN Cyclobenzaprine Hcl (Flexeril), 10 MG PO TID PRN for Muscle Spasm Fluticasone Prop/Salmeterol (Advair Diskus 100/50 60 Dose), 1 PUFF INH BID PRN for SOB/Wheezing Meloxicam (Mobic), 15 MG PO DAILY PRN for Pain Oxycodone/Acetaminophen 5MG/325MG (Percocet 5MG/325MG), 1-2 TAB PO Q4H PRN for Pain Allergies Coded Allergies: No Known Allergies (Verified , NONE, 06/11/16) Physical Exam Vital Signs Date Time Temp Pulse Resp B/P (MAP) Pulse Ox O2 Delivery O2 Flow Rate FiO2 06/14/17 22:58 36.6 92 15 130/75 99 06/14/17 21:40 92 15 06/14/17 21:10 86 19 06/14/17 21:09 130/75 06/14/17 20:40 88 16 06/14/17 20:25 92 06/14/17 17:55 36.6 91 16 153/89 99 Room Air Physical Exam GENERAL: Patient is a healthy-appearing well-nourished female HEAD: Normocephalic atraumatic EYES: Ocular movements intact pupils equal and react to light OROPHARYNX mucous membranes are moist no exudates present no erythema or edema present NECK: Supple no nuchal rigidity CHEST: Good equal expansion LUNGS: Clear and equal to auscultation CARDIAC: Normal S1 and S2 ABDOMEN: Soft nontender no guarding BACK: No CVA tenderness EXTREMITIES: No pain upon palpation normal muscle strength in all groups no clubbing cyanosis or edema NEURO: Patient is following commands and answering questions appropriately. Alert and oriented x3 Cranial Nerves 2-12 grossly intact Medical Decision & Procedures ER Provider Diagnostic Interpretation: Radiology results as stated below per my review and radiologist interpretation: CT ABD/PELVIS IV CONTRAST ONLY CLINICAL HISTORY: Diffuse abdominal pain COMPARISON STUDY: A 2116 TECHNIQUE: Following the IV administration of 75 mL of Optiray-320, CT scan of the abdomen and pelvis was performed from the lung bases to the proximal femurs. Images are reviewed in the axial, sagittal, and coronal planes. IV contrast was administered without complication. A dose lowering technique was utilized adhering to the principles of ALARA. CT DOSE: 836.09 mGy.cm FINDINGS: Lower chest: The heart is normal in size and configuration, without pericardial effusion. The lung bases and pleural spaces are clear. Liver: The contrast-enhanced liver is normal in size, contour, and attenuation. There is no intrahepatic biliary ductal dilatation. The hepatic veins and portal veins are patent. Gallbladder: Surgically absent Spleen: Normal in size and attenuation. Pancreas: Unremarkable. Adrenal glands: Unremarkable. Kidneys: No left kidney is visualized. There is a to small to characterize 5 mm lower pole right renal hypodensities statistically representing a cyst Bowel: There are no transition zones indicate bowel obstruction. The appendix appears normal. There is no acute diverticulitis. Peritoneum: There is no intraperitoneal free air or abdominal ascites. There is a small fat-containing umbilical hernia Vasculature: The abdominal aorta is normal in course and caliber. Adenopathy: None. Pelvic viscera: The uterus appears surgically absent. There is a 3 cm right ovarian cyst. Skeletal structures: There is bilateral osteitis condensing ilei. There is a presumed bone island within the proximal sacrum. IMPRESSION: 1. Surgically absent gallbladder, uterus and left kidney 2. No evidence of bowel obstruction. No evidence of free air 3. Normal appendix 4. No evidence of acute diverticulitis 5. 3 cm right ovarian cyst Electronically signed by: Bobby Saavedra M.D. 06/14/2017 9:58 PM Laboratory Results 06/14/17 20:30 Red Blood Count 5.16, Mean Corpuscular Volume 82.2, Mean Corpuscular Hemoglobin 28.7, Mean Corpuscular Hemoglobin Concent 34.9, Mean Platelet Volume 12.5, Neutrophils (%) (Auto) 77.0, Lymphocytes (%) (Auto) 16.2, Monocytes (%) (Auto) 6.1, Eosinophils (%) (Auto) 0.3, Basophils (%) (Auto) 0.2, Neutrophils # (Auto) 7.31, Lymphocytes # (Auto) 1.54, Monocytes # (Auto) 0.58, Eosinophils # (Auto) 0.03, Basophils # (Auto) 0.02 06/14/17 20:30 Test 06/14/17 20:30 06/14/17 20:36 06/14/17 21:10 White Blood Count 9.50 K/uL (4.8-10.8) Red Blood Count 5.16 M/uL (4.2-5.4) Hemoglobin 14.8 g/dL (12.0-16.0) Hematocrit 42.4 % (37-47) Mean Corpuscular Volume 82.2 fL (80-100) Mean Corpuscular Hemoglobin 28.7 pg (25-34) Mean Corpuscular Hemoglobin Concent 34.9 g/dl (32-36) Platelet Count 183 K/uL (130-400) Mean Platelet Volume 12.5 fL (7.4-10.4) Neutrophils (%) (Auto) 77.0 % Lymphocytes (%) (Auto) 16.2 % Monocytes (%) (Auto) 6.1 % Eosinophils (%) (Auto) 0.3 % Basophils (%) (Auto) 0.2 % Neutrophils # (Auto) 7.31 K/uL (1.4-6.5) Lymphocytes # (Auto) 1.54 K/uL (1.2-3.4) Monocytes # (Auto) 0.58 K/uL (0.11-0.59) Eosinophils # (Auto) 0.03 K/uL (0-0.5) Basophils # (Auto) 0.02 K/uL (0-0.2) RDW Standard Deviation 38.0 fL (36.4-46.3) RDW Coefficient of Variation 12.8 % (11.5-14.5) Immature Granulocyte % (Auto) 0.2 % Immature Granulocyte # (Auto) 0.02 K/uL (0.00-0.02) Est Creatinine Clear Calc Drug Dose 69.5 ml/min Estimated GFR () 72.4 Estimated GFR (Non- 62.5 BUN/Creatinine Ratio 9.9 (10-20) Calcium Level 9.8 mg/dl (8.5-10.1) Total Bilirubin 0.7 mg/dl (0.2-1) Direct Bilirubin < 0.1 mg/dl (0-0.2) Aspartate Amino Transf (AST/SGOT) 17 U/L (15-37) Alanine Aminotransferase (ALT/SGPT) 21 U/L (12-78) Alkaline Phosphatase 100 U/L (45-117) Total Protein 7.9 gm/dl (6.4-8.2) Albumin 4.2 gm/dl (3.4-5.0) Lipase 122 U/L (73-393) Bedside Hemoglobin 14.3 g/dl (12.0-16.0) Bedside Hematocrit 42 % (37-47) Bedside Sodium 139 mEq/L (135-144) Bedside Potassium 3.5 mEq/L (3.3-5.0) Bedside Chloride 102 mEq/L (101-112) Bedside Total CO2 24 mEq/l (24-31) Anion Gap 18.0 mmol/L (16-25) Bedside Blood Urea Nitrogen 10 mg/dl (7-18) Bedside Creatinine 1.1 mg/dl (0.6-1.3) Bedside Glucose (other) 93 mg/dl (70-99) Bedside Ionized Calcium (Tory) 1.17 mmol/l (1.12-1.32) Urine Color YELLOW Urine Appearance CLEAR (CLEAR) Urine pH 5.0 (4.5-7.5) Urine Specific [place] 1.016 (1.000-1.030) Urine Protein NEG (NEG) Urine Glucose (UA) NEG (NEG) Urine Ketones 2+ (NEG) Urine Occult Blood NEG (NEG) Urine Nitrite NEG (NEG) Urine Bilirubin NEG (NEG) Urine Urobilinogen NEG (NEG) Urine Leukocyte Esterase NEG (NEG) Urine Test NEG (NEG) Labs reviewed by ED physician. Medications Administered Medications (Trade) Dose Ordered Sig/Saul Route Start Time Stop Time Status Last Admin Dose Admin Hydromorphone HCl (Dilaudid Inj) 1 mg NOW STAT IV 06/14/17 19:39 06/14/17 19:41 DC 06/14/17 20:39 1 MG Ondansetron HCl (Zofran Inj) 4 mg NOW STAT IV 06/14/17 19:39 06/14/17 19:41 DC 06/14/17 20:39 4 MG Oxycodone/ Acetaminophen (Percocet 5/ 325MG Home Pack) 1 homepack UD ONCE PO 06/14/17 22:15 06/14/17 22:16 DC 06/14/17 22:57 1 HOMEPACK ED Course 1934: Past medical records reviewed. The patient was evaluated in room B11A. A complete history and physical examination was performed. 1938: Zofran Inj 4mg IV, Dilaudid Inj 1mg 2029: Ioversol 100ml IV 2033: I reassessed the patient and she is resting comfortably. 2214: Oxycodone/Acetaminophen 1 homepack PO 2219: Upon reexamination the patient is resting comfortably. I discussed results and treatment plan with the patient. She verbalizes agreement and understanding. The patient is ready for discharge. Medical Decision Differential diagnosis: Etiologies such as appendicitis, diverticulitis, PUD, biliary pathology, UTI, pancreatitis, obstruction, mesenteric ischemia, aortic pathology, infections, inflammatory bowel disease, renal colic, as well as others were entertained. This is a 47-year-old female who presents emergency department complaining of abdominal pain. Patient is being currently treated for C. difficile. She was unable to provide a stool sample while in the emergency department. She was given Dilaudid as well as Zofran in the emergency department. Serial abdominal examinations were performed on the patient in the emergency department in no time did the patient exhibit a surgical abdomen. In addition she has a normal CBC normal renal profile normal liver profile and normal lipase. I do believe that the patient as well as to be discharged home for follow-up with her primary care physician. Patient was in agreement with the treatment plan. Medication Reconcilliation Current Medication List: was personally reviewed by me Blood Pressure Screening Patient's blood pressure: Normal blood pressure Blood pressure disposition: Did not require urgent referral Impression Primary Impression: Abdominal pain Scribe Attestation The scribe's documentation has been prepared under my direction and personally reviewed by me in its entirety. I confirm that the note above accurately reflects all work, treatment, procedures, and medical decision making performed by me. Departure Information Dispostion Home / Self-Care Prescriptions Docusate Sodium (COLACE) 100 Mg Cap 1 CAP PO BID for 30 Days, #60 CAP Prov: Maynor Brown MD 06/14/17 Sennosides (SENOKOT) 8.6 Mg Tab 8.6 MG PO HS for 30 Days, #30 TAB Prov: Maynor Brown MD 06/14/17 Oxycodone/Acetaminophen 5MG/325MG (PERCOCET 5MG/325MG) Tab 1-2 TAB PO Q4H Y for Pain, #14 TAB Prov: Maynor Brown MD 06/14/17 Referrals Osbaldo Jones M.D. (PCP) Forms Call Back Authorization, HOME CARE DOCUMENTATION FORM, IMPORTANT VISIT INFORMATION Patient Instructions Abdominal Pain, ED Abdominal Pain Unkn Cause, [facility] Additional Instructions Clear liquid diet next 48 hours Follow up with Dr Contreras's office You received narcotic or benzodiazepene medication while in the emergency room today. This is an addictive medication that may cause drowziness as well as constipation. Do not drive, operate heavy machinery, or drink alcohol under the influence of this medication. Take 600 mg Ibuprofen every 6 hours Take Percocet for breakthrough pain You have been examined and treated today on an emergency basis only. This is not a substitute for, or an effort to provide, complete comprehensive medical care. It is impossible to recognize and treat all injuries or illnesses in a single emergency department visit. It is therefore important that you follow up closely with Dr Jones. Call as soon as possible for an appointment. Thank you for your time and consideration. I look forward to speaking with you again soon. Please don't hesitate to call us if you have any questions. Problem Qualifiers Primary Impression: Abdominal pain Abdominal location: unspecified location Qualified Codes: R10.9 - Unspecified abdominal pain
[2017-06-14] MEDS ORDERED: POTA20TA13 PO (19:46)
[2017-06-14] MEDS ORDERED: MELO15TA4 PO (19:46)
[2017-06-14] MEDS ORDERED: SERT1TAB68 PO (19:46)
[2017-06-14] MEDS ORDERED: HYZ/50125 PO (19:46)
[2017-06-14] MEDS ORDERED: ADVIN10/60 INH (19:46)
[2017-06-14] MEDS ORDERED: VANC5CAP PO (19:46)
[2017-06-14] MEDS ORDERED: AMLO5TAB2 PO (19:46)
[2017-06-14] MEDS ORDERED: CYCL10TA6 PO (19:46)
[2017-06-14] MEDS ORDERED: OPTIRAY 320 IV PRN (20:30)
[2017-06-14 20:49] LABS: ISTAT CREATININE 1.1 mg/dl (0.6-1.3); ISTAT IONIZED CALCIUM 1.17 mmol/l (1.12-1.32); ISTAT POTASSIUM 3.5 mEq/L (3.3-5.0)
[2017-06-14 20:49] LABS: BASO % 0.2 %; BASO ABS # 0.02 K/uL (0-0.2); EOS % 0.3 %; EOS ABS # 0.03 K/uL (0-0.5); HEMATOCRIT 42.4 % (37-47); HEMOGLOBIN 14.8 g/dL (12.0-16.0); IG# 0.02 K/uL (0.00-0.02); LYMPH % 16.2 %; LYMPH ABS # 1.54 K/uL (1.2-3.4); MEAN CELL VOLUME 82.2 fL (80-100); MEAN CORPUSCULAR HEMOGLOBIN 28.7 pg (25-34); MEAN CORPUSCULAR HGB CONC 34.9 g/dl (32-36); MEAN PLATELET VOLUME 12.5 fL (7.4-10.4); MONO % 6.1 %; MONO ABS # 0.58 K/uL (0.11-0.59); NEUT ABS # 7.31 K/uL (1.4-6.5); PLATELET COUNT 183 K/uL (130-400); RED CELL DISTRIBUTION WIDTH CV 12.8 % (11.5-14.5)
[2017-06-14 21:06] LABS: ALBUMIN 4.2 gm/dl (3.4-5.0); BLOOD UREA NITROGEN 11 mg/dl (7-18); CALCIUM 9.8 mg/dl (8.5-10.1); CARBON DIOXIDE 24 mmol/L (21-32); CREATININE 1.06 mg/dl (0.60-1.20); GLUCOSE 91 mg/dl (70-99); LIPASE 122 U/L (73-393); POTASSIUM 3.5 mmol/L (3.5-5.1); SODIUM 136 mmol/L (136-145)
[2017-06-14 21:13] LABS: ALKALINE PHOSPHATASE 100 U/L (45-117); ALT/SGPT 21 U/L (12-78); AST/SGOT 17 U/L (15-37); TOTAL PROTEIN 7.9 gm/dl (6.4-8.2)
--- NOTE | 2017-06-14 22:00 | DIAGNOSTIC IMAGING REPORT ---
CT ABD/PELVIS IV CONTRAST ONLY CLINICAL HISTORY: Diffuse abdominal pain COMPARISON STUDY: A 2116 TECHNIQUE: Following the IV administration of 75 mL of Optiray-320, CT scan of the abdomen and pelvis was performed from the lung bases to the proximal femurs. Images are reviewed in the axial, sagittal, and coronal planes. IV contrast was administered without complication. A dose lowering technique was utilized adhering to the principles of ALARA. CT DOSE: 836.09 mGy.cm FINDINGS: Lower chest: The heart is normal in size and configuration, without pericardial effusion. The lung bases and pleural spaces are clear. Liver: The contrast-enhanced liver is normal in size, contour, and attenuation. There is no intrahepatic biliary ductal dilatation. The hepatic veins and portal veins are patent. Gallbladder: Surgically absent Spleen: Normal in size and attenuation. Pancreas: Unremarkable. Adrenal glands: Unremarkable. Kidneys: No left kidney is visualized. There is a to small to characterize 5 mm lower pole right renal hypodensities statistically representing a cyst Bowel: There are no transition zones indicate bowel obstruction. The appendix appears normal. There is no acute diverticulitis. Peritoneum: There is no intraperitoneal free air or abdominal ascites. There is a small fat-containing umbilical hernia Vasculature: The abdominal aorta is normal in course and caliber. Adenopathy: None. Pelvic viscera: The uterus appears surgically absent. There is a 3 cm right ovarian cyst. Skeletal structures: There is bilateral osteitis condensing ilei. There is a presumed bone island within the proximal sacrum. IMPRESSION: 1. Surgically absent gallbladder, uterus and left kidney 2. No evidence of bowel obstruction. No evidence of free air 3. Normal appendix 4. No evidence of acute diverticulitis 5. 3 cm right ovarian cyst Electronically signed by: Bobby Saavedra M.D. 06/14/2017 9:58 PM Dictated Date/Time: 06/14/2017 9:54 PM
[2017-06-14] MEDS ORDERED: DOCU-94 PO (22:10)
[2017-06-14] MEDS ORDERED: OXYC-57 PO (22:10)
[2017-06-14] MEDS ORDERED: SENN1TAB77 PO (22:10)
[2017-06-14] MEDS ORDERED: PERCOCET HOME PACK PO ONE (22:15)
[2017-06-14 22:58] VITALS: BP 130/75; PULSE 92; TEMP 36.6; O2SAT 99
== END 2017-06-14 22:59 | disposition home or self-care (01) ==
LOC: C.EDB 17:41
DX: R10.9 Unspecified abdominal pain (principal); K57.92 Diverticulitis of intestine, part unspecified, without perforation or abscess without bleeding; Z79.899 Other long term (current) drug therapy; Z83.3 Family history of diabetes mellitus; Z82.49 Family history of ischemic heart disease and other diseases of the circulatory system

== ENCOUNTER → 2017-06-26 | Day surgery (SDC) | payer OTHER ==
[2017-06-22 15:19] VITALS: Ht 156.8 cm; Wt 92.3 kg
[~2017-06-26] VITALS: Ht 156.8 cm; Wt 92.3 kg
[~2017-06-26] MED LIST changes: -ADVIN10/60 INH; -AMLO-110 PO; +AMLO5TAB2 PO; -ASCA500 PO; +ASCO500T3 PO; -CPR500 PO; -FLX10 PO; +HYZ/50125 PO; +LIDOCAINE HCL 2% 2 ML VIAL (20MG/ML) ONE; -LOSA100T33 PO; -MELO7.5T5 PO; -POTA-335 PO; +POTA20TA13 PO; +PROPOFOL IV EMULSION 10 MG/ML 20 ML VIAL IV ONE; +SERT1TAB68 PO; -SERT50TA PO; +VANC5CAP PO
--- NOTE | 2017-06-26 11:39 | Endo History and Physical ---
History & Physical Date of Service: Jun 26, 2017. Chief Complaint: ABD PAIN Referring Physician: DR. KELLY History of Present Illness 47 yo CF who presents for colonoscopy secondary to abdominal pain. Past Medical History Asthma, Anxiety, Reflux, High Cholesterol, Hypertension, Other, Depression Past Surgical History Hx Cardiac Surgery: No Hx Internal Defibrillator: No Hx Pacemaker: No Hx Abdominal Surgery: Yes (JOHN, , TUBAL LIGATION, PARTIAL HYSTERECTOMY) Hx of Implantable Prosthesis: No Hx Post-Op Nausea and Vomiting: No Hx Cancer Surgery: No Hx Thoracic Surgery: No Hx Orthopedic: Yes (CERVICAL FUSION, LEFT ANKLE SX) Hx Urinary Tract Surgery: Yes (LEFT NEPHRECTOMY (DONOR)) Family History None Social History Smoking Status: Never Smoker Hx Substance Use: No Hx Alcohol Use: No Allergies Coded Allergies: No Known Allergies (Verified , NONE, 06/26/17) Current Medications Reported Home Medications Medications Dose Route/Sig Max Daily Dose Days Date Category Vitamin C (Ascorbic Acid) 500 Mg Tab 2 Tab PO QAM 06/22/17 Reported Vancomycin (Vancomycin HCl) 125 Mg Cap 125 Mg PO Q2D 06/14/17 Reported Hyzaar 12.5MG/50MG (HCTZ/Losartan Potassium) 1 Ea Tab 1 Tab PO QAM 06/14/17 Reported Potassium Chloride Er (Potassium Chloride Microencaps) 20 Meq Tab 3 Tab PO QAM 06/14/17 Reported Zoloft (Sertraline Hcl) 100 Mg Tab 100 Mg PO HS 06/14/17 Reported Norvasc (Amlodipine Besylate) 5 Mg Tab 5 Mg PO QAM 06/14/17 Reported Cinnamon 500 Mg Tab 500 Mg PO QAM 03/18/15 Reported Protonix (Pantoprazole Sodium) 40 Mg Tab 40 Mg PO QAM 03/18/15 Reported Lipitor (Atorvastatin) 40 Mg Tab 40 Mg PO HS 03/18/15 Reported Wellbutrin-Xl (Bupropion HCl) 300 Mg Tabcr 300 Mg PO QAM 03/18/15 Reported [place]-3 (Fish Oil) 1 Ea Cap 1 Cap PO QAM 02/24/09 Reported Vital Signs Weight (Kilograms): 92.27 Height (Feet): 5 Height (Inches): 1.75 Date Time Temp Pulse Resp B/P (MAP) Pulse Ox O2 Delivery O2 Flow Rate FiO2 06/26/17 10:50 36.5 87 18 147/76 (99) 99 Room Air Physical Exam General Appearance: WD/WN, no apparent distress Respiratory/Chest: Auscultation: breath sounds normal Cardiovascular: Heart Auscultation: RRR Abdomen: Bowel Sounds: normal Inspection & Palpation: soft, non-distended, no tenderness, guarding & rebound Assessment and Plan Assessment: 47 yo CF who presents for colonoscopy secondary to abdominal pain. Plan: Proceed with colonoscopy.
--- NOTE | 2017-06-26 12:33 | Discharge Instructions ---
Endoscopy Patient Instructions Date / Procedure(s) Performed Jun 26, 2017. Colonoscopy Allergy Information Coded Allergies: No Known Allergies (Verified , NONE, 06/26/17) Discharge Date / Findings Jun 26, 2017. Colon polyp Random colon biopsies Internal hemorrhoids Medication Instructions Stopped Medication(s): HYZAAR 12.5MG/50 LAST DOSE 06/25/17 0630 OK to resume all medications today as prescribed Reported Home Medications Medications Dose Route/Sig Max Daily Dose Days Date Category Vitamin C (Ascorbic Acid) 500 Mg Tab 2 Tab PO QAM 06/22/17 Reported Vancomycin (Vancomycin HCl) 125 Mg Cap 125 Mg PO Q2D 06/14/17 Reported Hyzaar 12.5MG/50MG (HCTZ/Losartan Potassium) 1 Ea Tab 1 Tab PO QAM 06/14/17 Reported Potassium Chloride Er (Potassium Chloride Microencaps) 20 Meq Tab 3 Tab PO QAM 06/14/17 Reported Zoloft (Sertraline Hcl) 100 Mg Tab 100 Mg PO HS 06/14/17 Reported Norvasc (Amlodipine Besylate) 5 Mg Tab 5 Mg PO QAM 06/14/17 Reported Cinnamon 500 Mg Tab 500 Mg PO QAM 03/18/15 Reported Protonix (Pantoprazole Sodium) 40 Mg Tab 40 Mg PO QAM 03/18/15 Reported Lipitor (Atorvastatin) 40 Mg Tab 40 Mg PO HS 03/18/15 Reported Wellbutrin-Xl (Bupropion HCl) 300 Mg Tabcr 300 Mg PO QAM 03/18/15 Reported [place]-3 (Fish Oil) 1 Ea Cap 1 Cap PO QAM 02/24/09 Reported Provider Instructions Activity Restrictions - No exercising or heavy lifting for 24 hours. - Do not drink alcohol the day of the procedure. - Do not drive a car or operate machinery until the day after the procedure. - Do not make any important decisions or sign important papers in 24 hours after the procedure. Following Day: - Return to full activity which may include returning to work/school. Diet Start your diet with liquids and light foods (jello, soup, juice, toast). Then eat your usual diet if not nauseated. Treatment For Common After Affects For mild abdominal pain, bloating, or excessive gas: - Rest - Eat lightly - Lie on right side Follow-Up Information Follow-up with DR. KELLY as scheduled Anesthesia Information What You Should Know You have had a procedure that required some medicine to reduce anxiety and discomfort. This treatment is called moderate sedation. After receiving the treatment, you may be sleepy, but you will be able to breathe on your own. The effects of the treatment may last for several hours. Follow these instructions along with Activity/Diet recommendations noted above: * Do NOT do anything where dizziness or clumsiness would be dangerous. * Rest quietly at home today, then you can be up and about tomorrow. * Have a responsible person stay with you the rest of today. * You may have had an I.V. today. If so, you may take the dressing off later today. Recommendations Call your doctor if: * Trouble breathing * Continuous vomiting for more than 24 hours * Temperature above 101 degrees * Severe abdominal pain or bloating * Pain not relieved by pain medicine ordered * There is increased drainage or redness from any incision * A large amount of rectal bleeding greater than 2-3 tablespoons. (If you had a polyp/s removed or have hemorrhoids, a small amount of blood - from the rectum is to be expected.) * You have any unanswered questions or concerns. IN THE EVENT OF A SERIOUS EMERGENCY, GO TO THE NEAREST EMERGENCY ROOM Your discharge instructions were prepared by provider David Contreras. Patient Instructions Signature Page Shaista Garcia Patient (or Guardian) Signature/Date: I have read and understand the instructions given to me by my caregivers. Caregiver/RN/Doctor Signature/Date: The above-named patient and/or guardian has received patient instructions on this date. + Original Patient Signature Page (only) stays with chart. Please make copy for patient.
--- NOTE | 2017-06-26 12:40 | GI REPORT ---
Procedure Date: 06/26/2017 11:57 AM Procedure: Colonoscopy Indications: Generalized abdominal pain Medicines: Monitored Anesthesia Care Complications: No immediate complications. Estimated Blood Loss: Estimated blood loss: none. Procedure: Pre-Anesthesia Assessment: - Prior to the procedure, a History and Physical was performed, and patient medications and allergies were reviewed. The patient's tolerance of previous anesthesia was also reviewed. The risks and benefits of the procedure and the sedation options and risks were discussed with the patient. All questions were answered, and informed consent was obtained. Prior Anticoagulants: The patient has taken no previous anticoagulant or antiplatelet agents. ASA Grade Assessment: II - A patient with mild systemic disease. After reviewing the risks and benefits, the patient was deemed in satisfactory condition to undergo the procedure. After I obtained informed consent, the scope was passed under direct vision. Throughout the procedure, the patient's blood pressure, pulse, and oxygen saturations were monitored continuously. The scope was introduced through the anus and advanced to the terminal ileum. The colonoscopy was performed without difficulty. The patient tolerated the procedure well. The quality of the bowel preparation was good. The terminal ileum, ileocecal valve, appendiceal orifice, and rectum were photographed. Findings: The perianal and digital rectal examinations were normal. A 4 mm polyp was found in the ascending colon. The polyp was sessile. The polyp was removed with a cold snare. Resection and retrieval were complete. Multiple small-mouthed diverticula were found in the sigmoid colon. Several random biopsies were obtained with cold forceps for histology in the entire colon. Non-bleeding internal hemorrhoids were found during retroflexion. The hemorrhoids were small. Impression: - One 4 mm polyp in the ascending colon, removed with a cold snare. Resected and retrieved. - Diverticulosis in the sigmoid colon. - Non-bleeding internal hemorrhoids. - Several random biopsies were obtained in the entire colon. Recommendation: - Resume previous diet. - Continue present medications. - Repeat colonoscopy for surveillance based on pathology results. - Return to primary care physician as previously scheduled. David Contreras DO 06/26/2017 12:40:03 PM This report has been signed electronically. Note Initiated On: 06/26/2017 11:57 AM I attest to the content of the Intraoperative Record and orders documented therein, exceptions below
[2017-06-26 13:00] VITALS: BP 130/86; PULSE 83; O2SAT 99
--- NOTE | 2017-06-26 13:05 | Anesthesiology Progress Note ---
Anesthesia Post Op Note Date & Time Jun 26, 2017 at 13:05 Vital Signs Pain Intensity: 0 Vital Signs Past 12 Hours Date Time Temp Pulse Resp B/P (MAP) Pulse Ox O2 Delivery O2 Flow Rate FiO2 06/26/17 13:00 83 18 130/86 (101) 99 Room Air 06/26/17 12:45 75 17 134/84 (101) 100 Room Air 06/26/17 12:30 80 17 124/69 (87) 99 Room Air 06/26/17 10:50 36.5 87 18 147/76 (99) 99 Room Air Notes Mental Status: alert / awake / arousable, participated in evaluation Pt Amnestic to Procedure: Yes Nausea / Vomiting: adequately controlled Pain: adequately controlled Airway Patency, RR, SpO2: stable & adequate BP & HR: stable & adequate Hydration State: stable & adequate Anesthetic Complications: no major complications apparent
== END | disposition home or self-care (01) ==
LOC: C.GI 10:10
PROVIDERS: ATTEND Internal Medicine
DX: R10.84 Generalized abdominal pain (principal); D12.2 Benign neoplasm of ascending colon; K57.30 Diverticulosis of large intestine without perforation or abscess without bleeding; K64.8 Other hemorrhoids; J45.909 Unspecified asthma, uncomplicated; F32.9 Major depressive disorder, single episode, unspecified; K21.9 Gastro-esophageal reflux disease without esophagitis; E78.00 Pure hypercholesterolemia, unspecified; I10 Essential (primary) hypertension; Z90.49 Acquired absence of other specified parts of digestive tract; Z98.51 Tubal ligation status; Z90.711 Acquired absence of uterus with remaining cervical stump; Z90.5 Acquired absence of kidney; Z79.899 Other long term (current) drug therapy; Z98.890 Other specified postprocedural states

== ENCOUNTER → 2017-07-03 | Outpatient (CLI) | payer OTHER ==
[~2017-07-03] MED LIST changes: -LIDOCAINE HCL 2% 2 ML VIAL (20MG/ML) ONE; -PROPOFOL IV EMULSION 10 MG/ML 20 ML VIAL IV ONE
== END | disposition home or self-care (01) ==
LOC: C.LABMFLN 15:19
PROVIDERS: ATTEND Family Medicine
DX: R19.7 Diarrhea, unspecified (principal)

== ENCOUNTER → 2017-07-19 | Outpatient (CLI) | payer OTHER ==
[2017-07-19 17:48] LABS: BASO % 0.5 %; BASO ABS # 0.04 K/uL (0-0.2); EOS % 1.2 %; HEMATOCRIT 41.5 % (37-47); HEMOGLOBIN 14.3 g/dL (12.0-16.0); IG# 0.02 K/uL (0.00-0.02); LYMPH % 25.7 %; LYMPH ABS # 2.21 K/uL (1.2-3.4); MEAN CELL VOLUME 83.3 fL (80-100); MEAN CORPUSCULAR HEMOGLOBIN 28.7 pg (25-34); MEAN CORPUSCULAR HGB CONC 34.5 g/dl (32-36); MEAN PLATELET VOLUME 12.9 fL (7.4-10.4); MONO % 6.5 %; MONO ABS # 0.56 K/uL (0.11-0.59); NEUT % 65.9 %; NEUT ABS # 5.68 K/uL (1.4-6.5); PLATELET COUNT 196 K/uL (130-400); RED CELL DISTRIBUTION WIDTH CV 12.9 % (11.5-14.5); RED CELL DISTRIBUTION WIDTH SD 38.5 fL (36.4-46.3); WHITE BLOOD COUNT 8.61 K/uL (4.8-10.8)
== END | disposition home or self-care (01) ==
LOC: C.LABMFLN 16:35
PROVIDERS: ATTEND Family Medicine
DX: R63.4 Abnormal weight loss (principal); R61 Generalized hyperhidrosis

== ENCOUNTER → 2017-09-28 | Outpatient (CLI) | payer OTHER ==
[2017-09-28 13:59] LABS: ALBUMIN 3.4 gm/dl (3.4-5.0); ALT/SGPT 19 U/L (12-78); AST/SGOT 7 U/L (15-37); BLOOD UREA NITROGEN 15 mg/dl (7-18); CALCIUM 8.5 mg/dl (8.5-10.1); CARBON DIOXIDE 29 mmol/L (21-32); CHOLESTEROL 223 mg/dl (0-200); GLUCOSE 89 mg/dl (70-99); POTASSIUM 3.1 mmol/L (3.5-5.1); SODIUM 138 mmol/L (136-145)
[2017-09-28 14:01] LABS: ALKALINE PHOSPHATASE 86 U/L (45-117); LDL CHOLESTEROL CALCULATED 133 mg/dl; TOTAL PROTEIN 6.5 gm/dl (6.4-8.2)
== END | disposition home or self-care (01) ==
LOC: C.LABMFLN 06:57
PROVIDERS: ATTEND Family Medicine
DX: E78.5 Hyperlipidemia, unspecified (principal); K21.9 Gastro-esophageal reflux disease without esophagitis; I10 Essential (primary) hypertension; E55.9 Vitamin D deficiency, unspecified